=== PATIENT | female | born 1980 | race Caucasian/White ===

== ENCOUNTER → 2023-05-03 10:22 | Outpatient (REF) | payer OTHER, SELFPAY | LOC: HWRAD 10:22 | PROVIDERS: ATTENDING PHYSICIAN Nurse Practitioner Family; FAMILY PHYSICIAN Family Medicine | DX: D25.9 Leiomyoma of uterus, unspecified (principal); N83.209 Unspecified ovarian cyst, unspecified side | CPT/HCPCS: 76830; 76856 ==

== ENCOUNTER → 2023-07-04 10:17 | Outpatient (REF) | payer OTHER, SELFPAY | LOC: HWRAD 10:17 | PROVIDERS: ATTENDING PHYSICIAN Family Medicine | DX: N28.1 Cyst of kidney, acquired (principal); E07.9 Disorder of thyroid, unspecified | CPT/HCPCS: 76536; 76775 ==

== ENCOUNTER → 2023-07-20 12:48 | Outpatient (REF) | payer OTHER, SELFPAY ==
[2023-07-20 13:00] VITALS: BP 136/82; BP_SYST 93
== END ==
LOC: RADI 12:48
PROVIDERS: ATTENDING PHYSICIAN Family Medicine
DX: E04.1 Nontoxic single thyroid nodule (principal)
CPT/HCPCS: 88173; 10005

== ENCOUNTER → 2023-11-21 11:16 | Outpatient (REF) | payer OTHER, SELFPAY | LOC: HWRCS 11:16 | PROVIDERS: ATTENDING PHYSICIAN Student in an Organized Health Care Education/Training Program; FAMILY PHYSICIAN Family Medicine | DX: I36.1 Nonrheumatic tricuspid (valve) insufficiency (principal); R93.89 Abnormal findings on diagnostic imaging of other specified body structures | CPT/HCPCS: 93306 ==

== ENCOUNTER → 2024-07-02 09:30 | Outpatient (REF) | payer OTHER, SELFPAY | LOC: RAD 09:30 | PROVIDERS: ATTENDING PHYSICIAN Family Medicine | DX: Z00.00 Encounter for general adult medical examination without abnormal findings (principal); D12.6 Benign neoplasm of colon, unspecified | CPT/HCPCS: 76536 ==

== ENCOUNTER → 2024-07-11 08:46 | Outpatient (REF) | payer OTHER, SELFPAY | LOC: RAD 08:46 | PROVIDERS: ATTENDING PHYSICIAN Family Medicine | DX: N90.89 Other specified noninflammatory disorders of vulva and perineum (principal); M51.360 Other intervertebral disc degeneration, lumbar region with discogenic back pain only | CPT/HCPCS: 72110 ==

== ENCOUNTER → 2024-07-13 09:57 | Outpatient (REF) | payer OTHER, SELFPAY | LOC: HWRAD 09:57 | PROVIDERS: ATTENDING PHYSICIAN Family Medicine | DX: R10.2 Pelvic and perineal pain (principal) | CPT/HCPCS: 76830; 76856 ==